=== PATIENT | female | born 1960 ===

== ENCOUNTER 2017-10-07 13:40 | Emergency (ER) | payer SELFPAY ==
[~2017-10-07] VITALS: Ht 152.4 cm; Wt 61.4 kg
[2017-10-07 13:53] VITALS: BP 161/74; PULSE 97; RESP 18; TEMP 98.4; O2SAT 97
[2017-10-07] MEDS ORDERED: ABAC1TAB3 PO (14:01)
[2017-10-07] MEDS ORDERED: AUGM875T3 PO (14:36)
--- NOTE | 2017-10-07 14:37 | PD ---
HPI Chief Complaint: Cold / Flu Symptoms Time Seen by Provider: 14:07 Travel History International Travel<30 days: No Contact w/Intl Traveler<30days: No Traveled to known affect area: No History of Present Illness HPI 57-year-old female with history of HIV. Presents to the emergency room for evaluation of left periorbital swelling for the past 3 days. Patient states 2 weeks ago she had a sinus infection that lasted for a week. Her symptoms resolved but then a few days later she developed the swelling above her left eye. The swollen area was tender. She went to an urgent care clinic and was told that it is likely just residual swelling from her upper respiratory infection. She was not given any medication. She states since then the swelling has worsened and spread to her lower eyelid. She denies any eye pain, vision problems, eye drainage, fever, chills, nausea, vomiting. She denies any other symptoms at this time. Viral load is undetectable. CD4 count is "really high." PFSH Social History Tobacco Use: No Allergies-Medications (Allergen,Severity, Reaction): Coded Allergies: No Known Allergies (Unverified , 10/07/17) Reported Meds & Prescriptions Reported Meds & Active Scripts Active Augmentin (Amoxicillin-Clavulanate) 875-125 Mg Tab 1 Tab PO BID Reported Triumeq (Cygnftke-Arcaepjtpypd-Bjiuqdxbct) 600-50-300 Mg Tab 1 Tab PO DAILY Hazardous agent; use appropriate precautions for handling & disposal. Review of Systems Except as stated in HPI: all other systems reviewed are Neg Physical Exam Narrative GENERAL: Well-nourished, well-developed female no acute distress. Afebrile. Ambulatory. SKIN: Focused skin assessment warm/dry. HEAD: Normocephalic. Sinus pressure and pain worsened when leaning forward. EYES: PERRL, EOMI without pain, no discharge or injection. No scleral icterus. No proptosis. There is moderate periorbital edema of the left upper and lower lid. NECK: Supple, trachea midline. No JVD or lymphadenopathy. CARDIOVASCULAR: Regular rate and rhythm without murmurs, gallops, or rubs. RESPIRATORY: Breath sounds equal bilaterally. No accessory muscle use. PSYCHIATRIC: No delusional thought processes. No hallucinations. Data Data Last Documented VS Vital Signs Date Time Temp Pulse Resp B/P (MAP) Pulse Ox O2 Delivery O2 Flow Rate FiO2 3/27/18 13:53 98.4 97 18 161/74 (103) 97 Orders Orders Ed Discharge Order (10/07/17 14:37) [facility] Medical Decision Making Medical Screen Exam Complete: Yes Emergency Medical Condition: Yes Medical Record Reviewed: Yes Differential Diagnosis Ruptured cyst, sinusitis, periorbital cellulitis Narrative Course 57-year-old female with history of HIV presents to the emergency room for evaluation of left ethmoid and maxillary sinus tenderness and swelling for the past several days. No associated fevers. Patient had a sinus infection a few weeks ago that has resolved. She has pain in the sinuses that is worsened when she leans forward. Physical exam reveals mild to moderate periorbital edema of the left upper and lower eyelid. There is no erythema or increased warmth. Vital signs stable. Patient has no eye pain, drainage, or injection. No proptosis. EOMI without pain. Low suspicion for periorbital cellulitis. Patient may have idiopathic edema but given her recent sinus infection, sinus tenderness, and history of HIV will be treated empirically for sinusitis with Augmentin. Patient to follow-up with a primary care physician or return for worsening symptoms. She understands and agrees to plan. Diagnosis Primary Impression: Sinusitis Qualified Codes: J01.20 - Acute ethmoidal sinusitis, unspecified Referrals: Primary Care Physician Additional Instructions: Rest and drink plenty of fluids. Take Augmentin as directed, until gone. Follow up with a primary care physician. Return to emergency room for worsening symptoms, as discussed. Scripts Amoxicillin-Clavulanate (Augmentin) 875-125 Mg Tab 1 TAB PO BID for Infection, #14 TAB 0 Refills Prov: Sanjiv Gonsalez MD 10/07/17 Disposition: 01 DISCHARGE HOME Condition: Stable Micheline Stearns Oct 07, 2017 14:37
== END 2017-10-07 15:20 | disposition home or self-care (01) ==
LOC: NEPK 13:40
DX: J32.2 Chronic ethmoidal sinusitis (principal); J32.0 Chronic maxillary sinusitis; Z21 Asymptomatic human immunodeficiency virus [HIV] infection status
CPT/HCPCS: 99283